=== PATIENT | male | born 1975 | race Caucasian/White ===

== ENCOUNTER 2017-11-23 05:53 | Emergency (ER) | payer MEDICAID ==
[2017-11-23] MEDS: SOD CHLORIDE 0.9% 1,000 ML IV (06:50)
[2017-11-23] MEDS: METOCLOPRAMIDE 10 MG INJ IV (06:51)
[2017-11-23] MEDS: KETOROLAC 30 MG INJ IV (06:52)
[2017-11-23] MEDS: DIPHENHYDRAMINE 50 MG INJ IV (06:52)
== END 2017-11-23 08:48 | disposition home or self-care (01) ==
LOC: FTE 05:53
DX: R51 Headache (principal)
CPT/HCPCS: 70450; 96374; 96375; 99285-25

== ENCOUNTER 2019-02-01 06:10 | Emergency (ER) | payer MEDICAID ==
[2019-02-01] MEDS: DIAZEPAM 5 MG TAB PO (06:36)
[2019-02-01] MEDS: DEXAMETHASONE 10 MG/ML 1 ML INJ IM (06:36)
[2019-02-01] MEDS: KETOROLAC 60 MG INJ IM (06:36)
== END 2019-02-01 07:59 | disposition home or self-care (01) ==
LOC: FTE 06:10
DX: M54.5 Low back pain (principal)
CPT/HCPCS: 96372; 99284-25